=== PATIENT | female | born 1995 | race Caucasian/White ===

== ENCOUNTER 2022-03-09 11:13 | Emergency (ER) | payer OTHER ==
[~2022-03-09] VITALS: Ht 172.7 cm; Wt 86.2 kg
[2022-03-09 11:17] VITALS: BP_SYST 143
--- NOTE | 2022-03-09 11:20 | NUR ---
ER at bedside examining patient.
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
--- NOTE | 2022-03-09 12:27 | NUR ---
DR KAPADIA AT BEDSIDE FOR EVALUATION
[2022-03-09 12:43] VITALS: BP_SYST 117
--- NOTE | 2022-03-09 12:44 | NUR ---
Patient given written and verbal discharge instructions and verbalizes understanding. ER MD discussed with patient the results and treatment provided. Patient in stable condition. ID arm band removed. Patient educated on pain management and to follow up with PMD. Pain Scale 0/10. Opportunity for questions provided and answered. Medication side effect fact sheet provided.
== END 2022-03-09 12:44 ==
LOC: SED 11:13
DX: M79.10 Myalgia, unspecified site (principal); R03.0 Elevated blood-pressure reading, without diagnosis of hypertension
CPT/HCPCS: 99283